=== PATIENT | female | born 1950 | race Caucasian/White ===

== ENCOUNTER 2023-04-17 13:58 | Inpatient (IN) ==
[2023-04-17] MEDS ORDERED: Dexamethasone IV 4 MG/ML VIAL 1 ml VIAL IV SLOW PU ONE (15:31)
[2023-04-17] MEDS ORDERED: Albuterol 2.5mg/3 ml (0.083%) NEB.SOLN INH ONE (15:31)
[2023-04-17 16:58] LABS: Hematocrit 45.8 % (35-45); Hemoglobin 15.7 g/dL (11.5-14.3); Mean Corpuscular Hemoglobin 33.1 pg (27-33); Mean Corpuscular Hgb Conc 34.3 g/dL (31-36); Mean Corpuscular Volume 96.5 fL (80-97); Mean Platelet Volume 10.4 fL (7.5-11.2); Platelet Count 126 10^3/uL (150-450); Red Blood Count 4.75 10^6/uL (3.63-4.92); Red Cell Distribution Width 14.7 % (12-17); White Blood Count 4.3 10^3/uL (3.8-11.8)
[2023-04-17] MEDS ORDERED: Dexamethasone IV 4 MG/ML VIAL 1 ml VIAL ONE (16:58)
[2023-04-17 17:05] LABS: Activated Partial Thrombo Time 32.9 seconds (26.0-38.0); INR 1.29 (0.88-1.18)
[2023-04-17 17:16] LABS: Albumin 3.9 g/dL (3.2-5.2); Albumin/Globulin Ratio 1.4 (1-3); C Reactive Protein 375.55 mg/L (<8.01); Calcium 10.1 mg/dL (8.6-10.3); Creatinine, Serum 1.11 mg/dL (0.51-0.95); Globulin 2.8 g/dL (2-4); Potassium 4.3 mmol/L (3.5-5.0); Total Protein 6.7 g/dL (6.4-8.9); eGFR CKD-EPI 52.2 (>60)
[2023-04-17] MEDS ORDERED: Lactated Ringers 1000 ml BAG 1,000 ML IV ONE ×2 (17:30→22:24)
[2023-04-17 17:34] LABS: ABS Lymphocytes 0.6 10^3/uL (1.0-4.8); ABS Monocytes 0.1 10^3/uL (0.0-0.9); ABS Neutrophils 3.6 10^3/uL (1.5-7.6); Eosinophil % 0.1 %; Lymphocyte % 13.5 %; Nucleated Red Blood Cells % 0.1 /100 WBC (0.0-0.4)
[2023-04-17 17:41] LABS: Anisocytosis 1+
[2023-04-17] MEDS ORDERED: Iodixanol (CONTRAST) 320 MG/ML 100 ML SDV IV ONE (17:49)
[2023-04-17 18:14] LABS: High Sensitivity Troponin 1 Hr 7 pg/mL (<15)
[2023-04-17] MEDS ORDERED: Triamcinolone 0.025% OINT 15 GM TUBE TOPICAL PRN (20:03)
[2023-04-17] MEDS ORDERED: Remdesivir 100 mg Vial 200 MG in NS 0.9% 250 ml 210 ML IV ONE (20:08)
[2023-04-17] MEDS: cefTRIAXone 1 gm/50 mL D5W 1 GM/50 ML BAG IV SCH (20:57)
[2023-04-17] MEDS ORDERED: Enoxaparin 40 MG/0.4 ML SYR SUBCUT SCH (21:00)
[2023-04-17] MEDS ORDERED: Enoxaparin 60 MG/0.6 ML SYR SUBCUT ONE (22:07)
[2023-04-18] MEDS: Azithromycin 500 mg/250 ml NS 500 MG/250 ML BAG IVPB SCH ×2 (01:29→22:07)
[2023-04-18 06:11] LABS: Hematocrit 41.1 % (35-45); Hemoglobin 14.1 g/dL (11.5-14.3); Mean Corpuscular Hemoglobin 32.9 pg (27-33); Mean Corpuscular Hgb Conc 34.2 g/dL (31-36); Mean Corpuscular Volume 96.2 fL (80-97); Mean Platelet Volume 10.2 fL (7.5-11.2); Platelet Count 121 10^3/uL (150-450); Red Blood Count 4.27 10^6/uL (3.63-4.92); Red Cell Distribution Width 14.7 % (12-17); White Blood Count 4.8 10^3/uL (3.8-11.8)
[2023-04-18 06:13] LABS: ABS Lymphocytes 0.4 10^3/uL (1.0-4.8); ABS Monocytes 0.2 10^3/uL (0.0-0.9); ABS Neutrophils 4.2 10^3/uL (1.5-7.6); Eosinophil % 0.1 %; Lymphocyte % 7.6 %; Nucleated Red Blood Cells % 0.1 /100 WBC (0.0-0.4)
[2023-04-18 06:16] LABS: INR 1.2 (0.88-1.18)
[2023-04-18 06:29] LABS: Albumin/Globulin Ratio 1.4 (1-3); Calcium 8.5 mg/dL (8.6-10.3); Creatinine, Serum 0.83 mg/dL (0.51-0.95); Globulin 2.1 g/dL (2-4); Magnesium 1.7 mg/dL (1.9-2.7); Potassium 4.7 mmol/L (3.5-5.0); Total Bilirubin 0.8 mg/dL (0.2-1.0); Total Protein 5.1 g/dL (6.4-8.9); eGFR CKD-EPI 73.9 (>60)
[2023-04-18 06:59] LABS: Ferritin 280.5 ng/mL (11-307)
[2023-04-18] MEDS: CMCS: Simvastatin 10 mg TAB (NF) PO SCH (08:44)
[2023-04-18] MEDS: Calcium/Vitamin D TAB 250/125 TAB PO SCH (08:44)
[2023-04-18] MEDS: Lactated Ringers 1000 ml BAG 1,000 ML IV SCH ×2 (08:51→19:25)
[2023-04-18] MEDS ORDERED: Enoxaparin 60 MG/0.6 ML SYR SUBCUT SCH (10:00)
[2023-04-18] MEDS ORDERED: Lactated Ringers 1000 ml BAG 500 ML IV ONE ×2 (12:52→14:00)
[2023-04-18] MEDS ORDERED: Lactated Ringers 1000 ml BAG 500 ML IV SCH (13:00)
[2023-04-18] MEDS: cefTRIAXone 1 gm/50 mL D5W 1 GM/50 ML BAG IV SCH (20:12)
[2023-04-18] MEDS: Remdesivir 100 mg Vial 100 MG in NS 0.9% 250 ml 230 ML IV SCH (20:55)
[2023-04-19 07:01] LABS: Hematocrit 36.4 % (35-45); Hemoglobin 12.6 g/dL (11.5-14.3); Mean Corpuscular Hemoglobin 33.1 pg (27-33); Mean Corpuscular Hgb Conc 34.6 g/dL (31-36); Mean Corpuscular Volume 95.6 fL (80-97); Mean Platelet Volume 10.4 fL (7.5-11.2); Platelet Count 129 10^3/uL (150-450); Red Blood Count 3.81 10^6/uL (3.63-4.92); Red Cell Distribution Width 14.5 % (12-17); White Blood Count 7.6 10^3/uL (3.8-11.8)
[2023-04-19 07:02] LABS: INR 1.12 (0.88-1.18)
[2023-04-19 07:15] LABS: Albumin 2.8 g/dL (3.2-5.2); Albumin/Globulin Ratio 1.4 (1-3); Calcium 8.4 mg/dL (8.6-10.3); Creatinine, Serum 0.8 mg/dL (0.51-0.95); Potassium 4.6 mmol/L (3.5-5.0); Total Bilirubin 0.6 mg/dL (0.2-1.0); Total Protein 4.8 g/dL (6.4-8.9); eGFR CKD-EPI 77.3 (>60)
[2023-04-19] MEDS: CMCS: Simvastatin 10 mg TAB (NF) PO SCH (08:47)
[2023-04-19] MEDS: Calcium/Vitamin D TAB 250/125 TAB PO SCH (08:47)
[2023-04-19] MEDS: Enoxaparin 40 MG/0.4 ML SYR SUBCUT SCH (08:48)
[2023-04-19] MEDS: Lactated Ringers 1000 ml BAG 1,000 ML IV SCH (12:05)
[2023-04-19] MEDS: cefTRIAXone 1 gm/50 mL D5W 1 GM/50 ML BAG IV SCH (19:48)
[2023-04-19] MEDS: Azithromycin 500 mg/250 ml NS 500 MG/250 ML BAG IVPB SCH (20:28)
[2023-04-19] MEDS: Carboxymethylcellulose/Glyceri 10 ML OPHTH.GEL lubricant eye gel BOTH EYES SCH (21:42)
[2023-04-19] MEDS: Remdesivir 100 mg Vial 100 MG in NS 0.9% 250 ml 230 ML IV SCH (21:53)
[2023-04-20] MEDS ORDERED: guaiFENesin DM SUGAR FREE 100 MG/10 MG 5 ML UDC PO PRN (01:18)
[2023-04-20 04:51] LABS: Hematocrit 41.5 % (35-45); Hemoglobin 14.1 g/dL (11.5-14.3); Mean Corpuscular Hemoglobin 32.7 pg (27-33); Mean Corpuscular Hgb Conc 34.1 g/dL (31-36); Mean Corpuscular Volume 95.7 fL (80-97); Platelet Count 151 10^3/uL (150-450); Red Blood Count 4.33 10^6/uL (3.63-4.92); Red Cell Distribution Width 14.9 % (12-17); White Blood Count 7.8 10^3/uL (3.8-11.8)
[2023-04-20 04:59] LABS: INR 1.07 (0.88-1.18)
[2023-04-20 05:12] LABS: Albumin 3.3 g/dL (3.2-5.2); Albumin/Globulin Ratio 1.4 (1-3); Calcium 9.2 mg/dL (8.6-10.3); Creatinine, Serum 0.82 mg/dL (0.51-0.95); Globulin 2.3 g/dL (2-4); Magnesium 1.7 mg/dL (1.9-2.7); Potassium 4.4 mmol/L (3.5-5.0); Total Bilirubin 0.6 mg/dL (0.2-1.0); Total Protein 5.6 g/dL (6.4-8.9)
[2023-04-20] MEDS ORDERED: Magnesium Sulfate 2 gm BAG 2 GM/50 ML BAG IVPB ONE (05:40)
[2023-04-20 05:54] LABS: ABS Lymphocytes 0.9 10^3/uL (1.0-4.8); ABS Monocytes 0.6 10^3/uL (0.0-0.9); ABS Neutrophils 6.3 10^3/uL (1.5-7.6); ABS Nucleated RBC 0.01 10^3/ul; Nucleated Red Blood Cells % 0.1 /100 WBC (0.0-0.4)
[2023-04-20] MEDS ORDERED: Magnesium Sulfate IV 3 GM in NS 0.9% 100 ml BAG 100 ML IVPB ONE (07:30)
[2023-04-20] MEDS: Calcium/Vitamin D TAB 250/125 TAB PO SCH (08:19)
[2023-04-20] MEDS: Enoxaparin 40 MG/0.4 ML SYR SUBCUT SCH (08:19)
[2023-04-20] MEDS: CMCS: Simvastatin 10 mg TAB (NF) PO SCH (08:19)
[2023-04-20] MEDS ORDERED: Furosemide 20 mg/2 ml IV VIAL IV ONE (13:12)
[2023-04-20] MEDS: cefTRIAXone 1 gm/50 mL D5W 1 GM/50 ML BAG IV SCH (20:21)
[2023-04-20] MEDS: Carboxymethylcellulose/Glyceri 10 ML OPHTH.GEL lubricant eye gel BOTH EYES SCH (20:21)
[2023-04-21 06:30] LABS: INR 1.14 (0.88-1.18)
[2023-04-21 06:37] LABS: Albumin/Globulin Ratio 1.6 (1-3); Calcium 8.4 mg/dL (8.6-10.3); Creatinine, Serum 0.82 mg/dL (0.51-0.95); Globulin 1.9 g/dL (2-4); Potassium 4.4 mmol/L (3.5-5.0); Total Bilirubin 0.5 mg/dL (0.2-1.0); Total Protein 4.9 g/dL (6.4-8.9)
[2023-04-21] MEDS: CMCS: Simvastatin 10 mg TAB (NF) PO SCH (08:38)
[2023-04-21] MEDS: Enoxaparin 40 MG/0.4 ML SYR SUBCUT SCH (08:38)
[2023-04-21] MEDS: Calcium/Vitamin D TAB 250/125 TAB PO SCH (08:38)
[2023-04-21] MEDS ORDERED: Furosemide 40 mg/4 ml IV VIAL IV SLOW PU ONE (08:51)
[2023-04-21] MEDS ORDERED: Albuterol/Ipratropium NEB.SOL (2.5/0.5 MG) 3 ML NEB.SOLN INH PRN (14:11)
[2023-04-21] MEDS: guaiFENesin 100 mg/5 ml LIQ unit dose cup PO PRN ×2 (17:05→23:58)
[2023-04-21] MEDS: Dextran 70/Hypromellose Tears Eye Drops 15 ml BTL (for Artificials Tears) BOTH EYES PRN (17:06)
[2023-04-21] MEDS: cefTRIAXone 1 gm/50 mL D5W 1 GM/50 ML BAG IV SCH (20:57)
[2023-04-21] MEDS: Carboxymethylcellulose/Glyceri 10 ML OPHTH.GEL lubricant eye gel BOTH EYES SCH (21:03)
[2023-04-22] MEDS: guaiFENesin 100 mg/5 ml LIQ unit dose cup PO PRN ×2 (08:48→17:58)
[2023-04-22] MEDS: CMCS: Simvastatin 10 mg TAB (NF) PO SCH (08:50)
[2023-04-22] MEDS: Calcium/Vitamin D TAB 250/125 TAB PO SCH (08:50)
[2023-04-22] MEDS: Enoxaparin 40 MG/0.4 ML SYR SUBCUT SCH (08:53)
[2023-04-22] MEDS: Dextran 70/Hypromellose Tears Eye Drops 15 ml BTL (for Artificials Tears) BOTH EYES PRN (08:53)
[2023-04-22] MEDS ORDERED: Furosemide 40 mg/4 ml IV VIAL IV ONE (16:52)
[2023-04-22] MEDS: cefTRIAXone 1 gm/50 mL D5W 1 GM/50 ML BAG IV SCH (19:52)
[2023-04-22] MEDS: Carboxymethylcellulose/Glyceri 10 ML OPHTH.GEL lubricant eye gel BOTH EYES SCH (19:53)
[2023-04-22] MEDS ORDERED: Senna TAB 8.6 mg TAB PO ONE (20:04)
[2023-04-23] MEDS: guaiFENesin 100 mg/5 ml LIQ unit dose cup PO PRN ×2 (03:17→10:23)
[2023-04-23 06:10] LABS: Hematocrit 43.1 % (35-45); Hemoglobin 14.8 g/dL (11.5-14.3); Mean Corpuscular Hemoglobin 32.6 pg (27-33); Mean Corpuscular Hgb Conc 34.4 g/dL (31-36); Mean Corpuscular Volume 94.8 fL (80-97); Mean Platelet Volume 9.6 fL (7.5-11.2); Platelet Count 264 10^3/uL (150-450); Red Blood Count 4.54 10^6/uL (3.63-4.92); Red Cell Distribution Width 14.7 % (12-17); White Blood Count 15.6 10^3/uL (3.8-11.8)
[2023-04-23 06:26] LABS: Calcium 8.5 mg/dL (8.6-10.3); Creatinine, Serum 0.95 mg/dL (0.51-0.95); Potassium 4.3 mmol/L (3.5-5.0); eGFR CKD-EPI 62.9 (>60)
[2023-04-23] MEDS: Enoxaparin 40 MG/0.4 ML SYR SUBCUT SCH (10:23)
[2023-04-23] MEDS: CMCS: Simvastatin 10 mg TAB (NF) PO SCH (10:24)
[2023-04-23] MEDS: Calcium/Vitamin D TAB 250/125 TAB PO SCH (10:24)
[2023-04-23 14:46] VITALS: BP 107/70
== END 2023-04-23 17:10 | disposition home or self-care (01) | DRG 177 ==
LOC: ED 13:58 → SUATTDRO 19:45 → EDHOLD 19:45 → MED 04-18 00:10
PROVIDERS: ADMIT Hospitalist; ATTEND Hospitalist